=== PATIENT | female | born 2000 ===

== ENCOUNTER 2024-08-04 05:51 | Inpatient (IN) | payer BC ==
[2024-08-04] MEDS ORDERED: Sodium Chloride 0.9% 20 ML SDV IV PRN (06:28)
[2024-08-04] MEDS ORDERED: Carboprost Tromethamine 250 MCG/1 mL Vial IM PRN (06:28)
[2024-08-04] MEDS ORDERED: Water For Irrigation,Sterile 1,000 ML Container IRR PRN (06:28)
[2024-08-04] MEDS ORDERED: Lidocaine 1% 50 ML MDV INJECT PRN (06:28)
[2024-08-04] MEDS ORDERED: Misoprostol 200 MCG Tab PO PRN (06:28)
[2024-08-04] MEDS ORDERED: Tranexamic Acid in NACL,ISO-OS 1,000 MG in Premix Bag 1 BAG IV PRN (06:28)
[2024-08-04] MEDS ORDERED: Methylergonovine 0.2 MG/1 ML Amp IM PRN (06:28)
[2024-08-04] MEDS ORDERED: Sodium Chloride 0.9% 2.5 ML Syringe FLUSH PRN (06:28)
[2024-08-04] MEDS ORDERED: Ondansetron 4 MG/2 ML SDV IVPUSH PRN (06:28)
[2024-08-04] MEDS ORDERED: Butorphanol 2 MG/ML SDV IVPUSH PRN (06:28)
[2024-08-04] MEDS ORDERED: Sodium Chloride 0.9% 10 ML Syringe FLUSH PRN (06:28)
[2024-08-04] MEDS ORDERED: Oxytocin/0.9 % Sodium Chloride 30 UNIT/500 ML BAG IV SCH (06:30)
[2024-08-04] MEDS ORDERED: Misoprostol 50 MCG (1/2 of 100 MCG) Tab VAG SCH (07:30)
[2024-08-04] MEDS ORDERED: ePHEDrine 50 MG/ML SDV IVPUSH PRN (07:53)
[2024-08-04] MEDS ORDERED: dexmedeTOMIDine HCl 200 MCG/2 ML SDV EPIDUR SCH (08:00)
[2024-08-04 08:06] LABS: BASOPHILS ABSOLUTE AUTO 0.04 K/uL (0.00-0.20); BASOPHILS PERCENT AUTO 0.3 % (0.0-1.0); EOSINOPHILS ABSOLUTE AUTO 0.03 K/uL (0.00-0.45); EOSINOPHILS PERCENT AUTO 0.2 % (0.0-6.0); HEMATOCRIT 39.3 % (37.0-47.0); HEMOGLOBIN 13.5 g/dL (12.0-16.0); IMMATURE GRAN ABSOLUTE AUTO 0.22 K/uL (0.00-0.05); IMMATURE GRAN PERCENT AUTO 1.5 % (0.0-0.4); LYMPHOCYTES ABSOLUTE AUTO 2.96 K/uL (1.00-4.80); LYMPHOCYTES PERCENT AUTO 19.7 % (24.0-44.0); MEAN CORPUSCULAR HEMOGLOBIN 31.3 pg (28.0-32.0); MEAN CORPUSCULAR HGB CONC 34.4 g/dL (32.0-36.0); MEAN CORPUSCULAR VOLUME 91.2 fL (83.0-99.0); MEAN PLATELET VOLUME 9.1 fL (9.4-12.3); MONOCYTES ABSOLUTE AUTO 0.89 K/uL (0.00-0.80); MONOCYTES PERCENT AUTO 5.9 % (0.0-8.0); NEUTROPHILS PERCENT AUTO 72.4 % (41.0-71.0); PLATELET COUNT,PLT 258 K/uL (150-400); RED BLOOD CELL COUNT 4.31 M/uL (4.10-5.30); WHITE BLOOD CELL COUNT,WBC 15.04 K/uL (3.9-11.3)
[2024-08-04] MEDS ORDERED: Misoprostol 25 MCG (1/4 of 100 MCG) Tab ONE (08:31)
[2024-08-04] MEDS: Misoprostol 50 MCG (1/2 of 100 MCG) Tab PO ONE (08:42)
[2024-08-04] MEDS: Misoprostol 50 MCG (1/2 of 100 MCG) Tab VAG SCH (08:46)
[2024-08-04] MEDS: Lactated Ringers 1,000 ML IV SCH (16:30)
[2024-08-04] MEDS: Oxytocin/0.9 % Sodium Chloride 30 UNIT/500 ML BAG IV SCH (16:34)
[2024-08-04] MEDS: Ropivacaine HCl/PF 400 MG in Premix Bag 1 BAG EPIDUR SCH (19:53)
[2024-08-04] MEDS: Phenylephrine HCl In 0.9% NaCl 1 MG/10 ML Syringe IVPUSH PRN (22:25)
[2024-08-05] MEDS ORDERED: Ferrous Sulfate 325 MG Tab PO SCH (08:00)
[2024-08-05] MEDS ORDERED: Prenatal Multivitamin with Calcium/Folic Acid/Iron Tab PO SCH (09:00)
[2024-08-05] MEDS ORDERED: Lidocaine 2% with EPINEPHrine 1:200,000 20 ML SDV ONE (13:45)
[2024-08-05] MEDS ORDERED: Propofol 200 MG/20 ML SDV ONE (13:55)
[2024-08-05] MEDS ORDERED: fentaNYL 100 MCG/2 ML SDV ONE (13:55)
[2024-08-05] MEDS ORDERED: Witch Hazel Medicated Pads 40/Jar TOP PRN (14:26)
[2024-08-05] MEDS ORDERED: Lanolin 100% Cream 7 GM Tube TOP PRN (14:26)
[2024-08-05] MEDS ORDERED: Misoprostol 200 MCG Tab RECTAL PRN (14:26)
[2024-08-05] MEDS ORDERED: Methylergonovine 0.2 MG/1 ML Amp IM PRN (14:26)
[2024-08-05] MEDS ORDERED: Acetaminophen 500 MG Tab PO PRN (14:26)
[2024-08-05] MEDS ORDERED: Benzocaine/Menthol 20%-0.5% Spray 78 GM Cannister TOP PRN (14:26)
[2024-08-05] MEDS ORDERED: Docusate Sodium 100 MG Cap PO PRN (14:26)
[2024-08-05] MEDS ORDERED: ceFAZolin 2 GM in Sodium Chloride 0.9% 50 ML IV SCH (14:30)
[2024-08-05 14:57] LABS: PH,UMBILICAL ARTERIAL 7.149 (7.18-7.38); PH,UMBILICAL VENOUS 7.257 (7.25-7.45)
[2024-08-05] MEDS: Ampicillin/Sulbactam Na 1.5 GM in Sodium Chloride 0.9% 50 ML IV SCH (15:09)
[2024-08-05] MEDS: Ibuprofen 800 MG Tab PO PRN (20:40)
[2024-08-05] MEDS: Methylergonovine 0.2 MG/1 ML Amp IM PRN (23:29)
[2024-08-06 06:13] LABS: HEMATOCRIT 28.1 % (37.0-47.0); HEMOGLOBIN 9.3 g/dL (12.0-16.0)
[2024-08-06] MEDS: Hydrocortisone 2.5% Crm 30 GM Tube TOP PRN (21:49)
== END 2024-08-07 13:40 | disposition home or self-care (01) | DRG 560 ==
LOC: MW.OBCHECK 05:51 → MW.OB 05:52 → MW.OBCHECK 08-05 13:44 → MW.OB 08-05 13:54 → OBSVTOIN 08-05 14:26 → MW.OB 08-05 17:44
PROVIDERS: ADMIT Obstetrics & Gynecology; ATTEND Obstetrics & Gynecology
PROC: 10E0XZZ Delivery of Products of Conception, External Approach (ICD-10-PCS; principal; 2024-08-05)
PROC: 3E0P7VZ Introduction of Hormone into Female Reproductive, Via Natural or Artificial Opening (ICD-10-PCS; 2024-08-05)
PROC: 3E033VJ Introduction of Other Hormone into Peripheral Vein, Percutaneous Approach (ICD-10-PCS; 2024-08-05)
PROC: 3E0R3BZ Introduction of Anesthetic Agent into Spinal Canal, Percutaneous Approach (ICD-10-PCS; 2024-08-05)
PROC: 00HU33Z Insertion of Infusion Device into Spinal Canal, Percutaneous Approach (ICD-10-PCS; 2024-08-05)
PROC: 0UQGXZZ Repair Vagina, External Approach (ICD-10-PCS; 2024-08-05)
PROC: 10J07ZZ Inspection of Products of Conception, Via Natural or Artificial Opening (ICD-10-PCS; 2024-08-05)
DX: O48.0 Post-term pregnancy (principal); Z37.0 Single live birth; E66.09 Other obesity due to excess calories; O42.02 Full-term premature rupture of membranes, onset of labor within 24 hours of rupture; Z90.89 Acquired absence of other organs; Z98.890 Other specified postprocedural states; Z88.8 Allergy status to other drugs, medicaments and biological substances; O99.214 Obesity complicating childbirth; O70.0 First degree perineal laceration during delivery; O77.0 Labor and delivery complicated by meconium in amniotic fluid; Z3A.41 41 weeks gestation of pregnancy
CPT/HCPCS: 36415; 59025; 82803; 84112; 85014; 85018; 85025; 86592; 86850; 86900; 86901; A9270-GY; J0295; J2210; J2371; J2590; J2704; J2795; J3010; J3490; J7120